=== PATIENT | male | born 1950 | race Caucasian/White ===

== ENCOUNTER → 2017-11-06 | Outpatient (CLI) | payer MEDICARE, BC ==
[~2017-11-06] MED LIST: ASPI81CH PO; ASPI81EC PO; ATOR10 PO; CHOL10002 PO; EFFIENT; FERSU220EL PO; FEXPSEER PO; FISH1000 PO; FLUR OD; FLURBIPROFEN PO; HYDACE5325 PO; IBUP400 PO; LANS30EC PO; META800 PO; NAPR500 PO; NEBI10 PO; NIFE30ER PO; OLME20 PO; OLME20-12. PO; OLMESARTAN-HCT1 EAC2 PO; OXYACE5T PO; POLY500 PO; [UNRECOGNIZED DRUG - REMARK] PO
== END | disposition home or self-care (01) ==
LOC: PLD 10:06 → LAB SHORT 10:06
DX: C44.229 Squamous cell carcinoma of skin of left ear and external auricular canal (principal)
CPT/HCPCS: 88305

== ENCOUNTER → 2017-11-25 | Outpatient (CLI) | payer MEDICARE, BC | END | disposition home or self-care (01) | LOC: PLD 13:24 → LAB SHORT 13:24 | DX: C44.229 Squamous cell carcinoma of skin of left ear and external auricular canal (principal) | CPT/HCPCS: 88305 ==

== ENCOUNTER → 2017-11-30 | Outpatient (CLI) | payer MEDICARE, BC | END | disposition home or self-care (01) | LOC: LAB EV 12:06 → LAB SHORT 12:06 | DX: B99.9 Unspecified infectious disease (principal) | CPT/HCPCS: 87070; 87077; 87147; 87186; 87205 ==

== ENCOUNTER → 2018-04-01 | Outpatient (CLI) | payer MEDICARE, BC | END | disposition home or self-care (01) | LOC: LAB SHORT 17:04 → LAB EV 17:04 | DX: R07.0 Pain in throat (principal) | CPT/HCPCS: 87070 ==

== ENCOUNTER → 2018-06-15 | Outpatient (CLI) | payer MEDICARE, BC | END | disposition home or self-care (01) | LOC: LAB SHORT 07:59 → PLD 07:59 | DX: C44.629 Squamous cell carcinoma of skin of left upper limb, including shoulder (principal) | CPT/HCPCS: 88305 ==

== ENCOUNTER 2020-09-17 16:25 | Emergency (ER) | payer MEDICARE, BC ==
[~2020-09-17] VITALS: Ht 172.7 cm; Wt 95.2 kg
[~2020-09-17 16:25] MED LIST changes: +HYDCHL25; +LOSA50 PO
[2020-09-17] MEDS ORDERED: OXYACE7.5T PO (17:46)
== END 2020-09-17 18:15 | disposition home or self-care (01) ==
LOC: ER 16:25
DX: S42.035A Nondisplaced fracture of lateral end of left clavicle, initial encounter for closed fracture (principal); I10 Essential (primary) hypertension; K21.9 Gastro-esophageal reflux disease without esophagitis; Z88.1 Allergy status to other antibiotic agents; Z88.8 Allergy status to other drugs, medicaments and biological substances; Z79.82 Long term (current) use of aspirin; Z79.899 Other long term (current) drug therapy; W11.XXXA Fall on and from ladder, initial encounter; Y92.009 Unspecified place in unspecified non-institutional (private) residence as the place of occurrence of the external cause
CPT/HCPCS: 29105; 73010; 73030; 99283-25; A9270

== ENCOUNTER 2021-10-31 07:47 | Day surgery (SDC) | payer MEDICARE, BC ==
[~2021-10-31] VITALS: Ht 172.7 cm; Wt 94.7 kg
[~2021-10-31 07:47] MED LIST changes: +AMLO5 PO; +METF500 PO; +OXYACE7.5T PO
[2021-10-31] MEDS ORDERED: META800 (08:30)
[2021-10-31] MEDS ORDERED: METAXALONE (08:31)
== END 2021-10-31 09:54 | disposition home or self-care (01) ==
LOC: ORSCSDS 07:47
PROVIDERS: Internal Medicine Gastroenterology
PROC: 0DBK8ZX Excision of Ascending Colon, Via Natural or Artificial Opening Endoscopic, Diagnostic (ICD-10-PCS; principal; 2021-10-31 09:00)
PROC: 0DBL8ZX Excision of Transverse Colon, Via Natural or Artificial Opening Endoscopic, Diagnostic (ICD-10-PCS; principal; 2021-10-31 09:00)
DX: Z12.11 Encounter for screening for malignant neoplasm of colon (principal); D12.2 Benign neoplasm of ascending colon; D12.3 Benign neoplasm of transverse colon; K57.30 Diverticulosis of large intestine without perforation or abscess without bleeding; Z86.010 Personal history of colon polyps; E11.9 Type 2 diabetes mellitus without complications; I25.10 Atherosclerotic heart disease of native coronary artery without angina pectoris; I25.2 Old myocardial infarction; K22.70 Barrett's esophagus without dysplasia; Z79.82 Long term (current) use of aspirin; Z79.84 Long term (current) use of oral hypoglycemic drugs; Z79.899 Other long term (current) drug therapy
CPT/HCPCS: 82947; 88305; J2704; J7120

== ENCOUNTER → 2022-02-11 | Outpatient (CLI) | payer MEDICARE, BC ==
[~2022-02-11] MED LIST changes: +META800; +METAXALONE
== END ==
LOC: LAB SHORT 15:04
DX: L57.0 Actinic keratosis (principal)
CPT/HCPCS: 88305

== ENCOUNTER → 2022-08-20 | Outpatient (CLI) | payer MEDICARE, BC | END | disposition home or self-care (01) | LOC: LAB SHORT 11:53 → PLD 11:53 | DX: D04.22 Carcinoma in situ of skin of left ear and external auricular canal (principal) | CPT/HCPCS: 88305 ==

== ENCOUNTER → 2022-12-16 | Outpatient (CLI) | payer MEDICARE, BC | END | disposition home or self-care (01) | LOC: LAB 07:56 → LAB SHORT 07:56 → PLD 07:56 | DX: C44.622 Squamous cell carcinoma of skin of right upper limb, including shoulder (principal); L85.8 Other specified epidermal thickening | CPT/HCPCS: 88305 ==

== ENCOUNTER 2023-07-21 10:04 | Day surgery (SDC) | payer MEDICARE, BC ==
[~2023-07-21] VITALS: Ht 172.7 cm; Wt 95.0 kg
[~2023-07-21 10:04] MED LIST changes: +Lactated Ringer's 1,000 ML IV ONE; +propofoL 50 ML IV ONE
[2023-07-21] MEDS ORDERED: CHLO25B (10:26)
[2023-07-21] MEDS ORDERED: LANS15EC (10:27)
[2023-07-21] MEDS ORDERED: FLUO60T (10:27)
[2023-07-21] MEDS ORDERED: Lactated Ringer's 1,000 ML IV ONE (10:54)
[2023-07-21 11:50] VITALS: BP 131/85
== END 2023-07-21 11:50 | disposition home or self-care (01) ==
LOC: ORSCSDS 10:04
PROVIDERS: Internal Medicine Gastroenterology
PROC: 0DB68ZX Excision of Stomach, Via Natural or Artificial Opening Endoscopic, Diagnostic (ICD-10-PCS; principal; 2023-07-21 11:15)
PROC: 0DB58ZX Excision of Esophagus, Via Natural or Artificial Opening Endoscopic, Diagnostic (ICD-10-PCS; principal; 2023-07-21 11:15)
DX: K22.70 Barrett's esophagus without dysplasia (principal); K20.90 Esophagitis, unspecified without bleeding; I25.2 Old myocardial infarction; E11.9 Type 2 diabetes mellitus without complications; I25.10 Atherosclerotic heart disease of native coronary artery without angina pectoris; Z68.32 Body mass index [BMI] 32.0-32.9, adult; Z79.82 Long term (current) use of aspirin; Z79.84 Long term (current) use of oral hypoglycemic drugs; Z79.899 Other long term (current) drug therapy
CPT/HCPCS: 82947; 88305; 88342; J2704; J7120

== ENCOUNTER → 2024-07-01 | Outpatient (CLI) | payer MEDICARE, BC ==
[~2024-07-01] MED LIST changes: +CHLO25B; +FLUO60T; +LANS15EC; -Lactated Ringer's 1,000 ML IV ONE; -propofoL 50 ML IV ONE
[2024-07-01 20:42] LABS: Microalb/Creat Ratio UR, Rand 18.978 mg/g (0.000-30.000); Microalbumin, Random Urine 35.3 mg/L (0.000-20.000)
== END ==
LOC: LAB 18:27 → LAB SHORT 18:27
PROVIDERS: Internal Medicine
DX: E11.51 Type 2 diabetes mellitus with diabetic peripheral angiopathy without gangrene (principal)
CPT/HCPCS: 82043; 82570